=== PATIENT | male | born 1990 | race Caucasian/White ===

== ENCOUNTER 2018-04-02 19:55 | Emergency (ER) | payer OTHER, BC ==
[~2018-04-02] VITALS: Ht 167.6 cm; Wt 99.8 kg
[~2018-04-02 19:55] MED LIST: DOXYCYCL HYC100 MG PO; ERYTHROMYCIN E400 MG PO; NO
[2018-04-02] MEDS ORDERED: FLEXERIL PO (21:08)
[2018-04-02 21:16] VITALS: BP 139/87
== END 2018-04-02 21:16 | disposition home or self-care (01) | DRG 563 ==
LOC: ED 19:55
DX: S39.012A Strain of muscle, fascia and tendon of lower back, initial encounter (principal); S29.012A Strain of muscle and tendon of back wall of thorax, initial encounter; X50.3XXA Overexertion from repetitive movements, initial encounter; Y93.H2 Activity, gardening and landscaping; Y92.328 Other athletic field as the place of occurrence of the external cause; Y99.0 Civilian activity done for income or pay